=== PATIENT | female | born 1990 | race Caucasian/White ===

== ENCOUNTER 2022-03-01 13:00 | Emergency (ER) | payer OTHER ==
[~2022-03-01] VITALS: Ht 162.6 cm; Wt 59.1 kg
[2022-03-01 13:49] VITALS: BP 122/78
[2022-03-01 14:31] LABS: BASOPHILS % (AUTO) 0.7 % (0.0-2.0); EOSINOPHILS % (AUTO) 0.3 % (1.0-6.0); HEMATOCRIT 38.2 % (36-46); LYMPHOCYTES # (AUTO) 1.1 K/uL (1.0-4.8); LYMPHOCYTES % (AUTO) 16.6 % (22.0-44.0); MEAN CORPUSCULAR HEMOGLOBIN 27.7 pg (26.0-34.0); MEAN CORPUSCULAR VOLUME 82 fL (80-100); MONOCYTES # (AUTO) 0.5 K/uL (0.1-1.0); MONOCYTES % (AUTO) 7.8 % (2.0-9.0); NEUTROPHILS # (AUTO) 4.8 K/uL (1.8-7.7); NEUTROPHILS % (AUTO) 74.6 % (40.0-70.0); PLATELET COUNT (AUTO) 271 K/uL (150-450); RED BLOOD CELL COUNT(AUTO) 4.68 MIL/uL (4.00-5.20); RED CELL DISTRIBUTION WIDTH 13.9 % (11.5-14.5)
== END 2022-03-01 16:44 | disposition home or self-care (01) ==
LOC: EMS 13:00
DX: O03.9 Complete or unspecified spontaneous abortion without complication (principal)
CPT/HCPCS: 76801; 76817; 84702; 85025; 86901; 99284

== ENCOUNTER 2022-03-03 09:15 | Emergency (ER) | payer OTHER ==
[~2022-03-03] VITALS: Ht 165.1 cm; Wt 70.5 kg
[2022-03-03] MEDS ORDERED: PYRIDOXINE HCL 50 MG TABLET PO ONE (09:30)
[2022-03-03] MEDS ORDERED: DOXYLAMINE SUCCINATE 25 MG TABLET PO ONE (09:30)
[2022-03-03] MEDS ORDERED: ACETAMINOPHEN 500 MG TABLET PO ONE (09:30)
[2022-03-03] MEDS ORDERED: DOXY1TAB3 PO (11:17)
[2022-03-03 11:26] VITALS: BP 113/74
== END 2022-03-03 12:31 | disposition home or self-care (01) ==
LOC: EMS 09:15
DX: O20.0 Threatened abortion (principal); F10.20 Alcohol dependence, uncomplicated; Z90.89 Acquired absence of other organs; Z3A.00 Weeks of gestation of pregnancy not specified
CPT/HCPCS: 76817; 84702; 99284

== ENCOUNTER 2024-07-06 11:46 | Emergency (ER) | payer OTHER ==
[~2024-07-06] VITALS: Ht 162.6 cm; Wt 67.2 kg
[~2024-07-06 11:46] MED LIST: DOXY1TAB3 PO
[2024-07-06 11:54] VITALS: TEMP 97.4
[2024-07-06] MEDS: IBUPROFEN 600 MG TABLET PO ONE (12:48)
[2024-07-06] MEDS: ACETAMINOPHEN 500 MG TABLET PO ONE (12:48)
[2024-07-06 14:30] VITALS: BP 123/66; PULSE 65; RESP 13; O2SAT 98
[2024-07-06] MEDS: LIDOCAINE 1% 10 ML VIAL IM ONE (14:44)
[2024-07-06] MEDS: TraMADol HCL 50 MG TABLET PO ONE (14:44)
[2024-07-06] MEDS: BUPIVACAINE HCL/PF 0.25% 10 ML VIAL IM ONE (14:49)
[2024-07-06] MEDS ORDERED: TRAM50TA5 PO (16:15)
[2024-07-06] MEDS ORDERED: AMOX250C4 PO (16:15)
[2024-07-06] MEDS: BACITRACIN 28 GM OINTMENT TP ONE (16:26)
== END 2024-07-06 16:37 | disposition home or self-care (01) ==
LOC: EMS 11:46
DX: L03.032 Cellulitis of left toe (principal); Z90.89 Acquired absence of other organs; Z98.890 Other specified postprocedural states
CPT/HCPCS: 99284; 11730; J3490 ×2

== ENCOUNTER 2024-07-18 12:02 | Emergency (ER) | payer OTHER ==
[~2024-07-18] VITALS: Ht 162.6 cm; Wt 68.2 kg
[~2024-07-18 12:02] MED LIST changes: +AMOX250C4 PO; -DOXY1TAB3 PO; +TRAM50TA5 PO
[2024-07-18 12:04] VITALS: TEMP 98.9
[2024-07-18] MEDS: CEPHALEXIN MONOHYDRATE 500 MG CAPSULE PO ONE (13:37)
[2024-07-18] MEDS: ACETAMINOPHEN/CODEINE 300-30 MG TABLET PO ONE (13:37)
[2024-07-18] MEDS: KETOROLAC TROMETHAMINE 60 MG/2 ML VIAL IM ONE (13:37)
[2024-07-18] MEDS: LIDOCAINE 1% 10 ML VIAL SQ ONE (13:38)
[2024-07-18 15:25] VITALS: BP 118/71; PULSE 81; RESP 16; O2SAT 98
[2024-07-18] MEDS ORDERED: CEPH-558 PO (15:37)
[2024-07-18] MEDS ORDERED: IBUP-1554 PO (15:37)
[2024-07-18] MEDS ORDERED: ACET-2080 PO (15:37)
== END 2024-07-18 16:22 | disposition home or self-care (01) ==
LOC: EMS 12:02
DX: L03.032 Cellulitis of left toe (principal); F12.90 Cannabis use, unspecified, uncomplicated; Z90.89 Acquired absence of other organs; Z91.040 Latex allergy status; Z91.018 Allergy to other foods
CPT/HCPCS: 99283; 10060; 96372; J1885; J3490